=== PATIENT | male | born 1960 | race African-American/Black ===

== ENCOUNTER 2016-06-14 11:18 | Emergency (ER) | payer MEDICARE ==
[~2016-06-14] VITALS: Wt 81.8 kg
[~2016-06-14 11:18] MED LIST: HYDR-902 PO
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
== END 2016-06-14 13:16 | disposition home or self-care (01) ==
LOC: FTE 11:18
DX: Z48.02 Encounter for removal of sutures (principal)
CPT/HCPCS: 99281